=== PATIENT | female | born 1985 | race Caucasian/White ===

== ENCOUNTER → 2017-03-26 | Outpatient (CLI) | payer BC ==
[~2017-03-26] VITALS: Ht 157.5 cm; Wt 74.6 kg
[~2017-03-26] MED LIST: 00186-0372-20 IH; ALLEGRA-D 24HOU1 T24 PO; ATIVAN 0.50.5 MG/TAB PO; AZURETTE1 TAB PO; BLOOD PRESSURE MED; CALCIUM1 CAP PO; COLACE 100100 MG/CAP PO; FLEXERIL10 MG PO; FLOMAX 0.40.4 MG/CAP PO; GLUCOPHAGE; IRON325 M2 PO; IRON325 MG PO; LEVAQUIN 750MG750 M1 PO; LEVEMIR SQ; LEXAPRO 10MG10 MG PO; LEXAPRO 5MG5 MG PO; LEXAPRO20 MG PO; LORTAB 5/500 501 TAB PO; METHYLDOPA PO; MULTIPLE VITAMI1 TAB PO; NAPROSYN PO; NEXIUM 20MG20 MG PO; NO HOME MEDICATIONS; NORCO 325 MG-51 TAB PO; NOVOLOG 100U100 U/ML SQ; PERCOCET 325 MG1 TA2 PO; PERCOCET 5/321 UDTAB PO; PHENERGAN25 MG RC; PHENTERMINE15 MG; PRENATAL1 TA1 PO; PRENATAL1 TA6 PO; PRIL40 PO; RITE AID BIO2500 MCG PO; RT ADVAIR 128 DISKUS IH; SINGULAIR 110 MG/TAB PO; VENTOLIN0.09 MG IH; VITAMIN B121000 MC2 SL; VITAMIN D 50,1.25 MG PO; VITAMIN D PO; VITAMIN D1000 IU PO; VITAMIN D32000 IU PO; VITAMIND3 5000 PO; WELLBUTRIN PO; WELLBUTRIN SR100 M1 PO; ZOFRAN ODT4 MG PO; [UNRECOGNIZED DRUG - OTHER] PO; [UNRECOGNIZED DRUG - OTHER] PO
[2017-03-26 14:28] VITALS: BP 120/70; PULSE 64
== END ==
LOC: LIGHT 14:08
DX: Z98.84 Bariatric surgery status (principal); Z68.30 Body mass index [BMI] 30.0-30.9, adult; Z71.3 Dietary counseling and surveillance
CPT/HCPCS: G0463

== ENCOUNTER 2019-06-06 08:49 | Day surgery (SDC) | payer OTHER ==
[~2019-06-06] VITALS: Ht 157.5 cm; Wt 72.5 kg
[~2019-06-06 08:49] MED LIST changes: +AMBIEN 5MG TABLE5 MG PO; +BIOTIN2500 MCG PO; +DILAUDID 4MG TAB4 MG PO; +DULERA1 ARO IH; +INDERAL 20MG20 MG PO; +NASACORT OTC NS; -PRIL40 PO; +PRILOSEC 20MG20 MG PO; +REXULTI3 MG PO; -RITE AID BIO2500 MCG PO; +XYZAL5 MG PO
[2019-06-06 09:12] VITALS: BP 123/80; PULSE 71; TEMP 97.5
[2019-06-06] MEDS ORDERED: BREO ELLIPTA 21 EACH IH (09:24)
[2019-06-06] MEDS ORDERED: PRISTIQ100 MG PO (09:24)
[2019-06-06] MEDS ORDERED: ACCOLATE 220 MG/1 TA PO (09:24)
[2019-06-06] MEDS ORDERED: ASMANEX HF200 MCG/Ac IH (09:25)
[2019-06-06] MEDS ORDERED: KLONOPIN WAFER0.5 MG PO (09:25)
[2019-06-06] MEDS ORDERED: MINIPRESS2 MG PO (09:25)
[2019-06-06] MEDS ORDERED: PERCOCET 325 MG1 TA2 PO (09:26)
--- NOTE | 2019-06-06 09:30 | NUR ---
TO RM AT 0900- CALL LIGHT IN REACH WILL CALL [employer] MOTHER IN LAW FOR RIDE HOME
[2019-06-06 10:25] VITALS: BP 100/76; PULSE 56; TEMP 97.8
--- NOTE | 2019-06-06 10:25 | NUR ---
Patient brought back to [facility] [address] via cart. Ambulated to chair without difficulty. Placed on monitors, vital signs stable. Patient denies pain or nausea. Requesting soda and muffin. Report recieved from Rufino DUGGAN. Provided warm blanket and call galeas, will continue to monitor.
[2019-06-06 10:40] VITALS: BP 105/65; PULSE 54
--- NOTE | 2019-06-06 10:40 | NUR ---
Patient tolerating food and drink without any difficulty. States she is feeling well. Will continue to monitor.
[2019-06-06 10:55] VITALS: BP 107/96; PULSE 70
--- NOTE | 2019-06-06 10:55 | NUR ---
Patient states she is ready to go home. IV removed. Discharge instructions reviewed. All questions answered. Patient to get dressed at this time.
--- NOTE | 2019-06-06 11:12 | NUR ---
Patient brought down to lobby via wheel chair. Mother in law met patient at front door. Will drive her home.
== END 2019-06-06 11:12 | disposition home or self-care (01) ==
LOC: SDCO 08:49
DX: K62.1 Rectal polyp (principal); Z88.6 Allergy status to analgesic agent; Z98.84 Bariatric surgery status; M79.7 Fibromyalgia
CPT/HCPCS: J2250; J2704; J7120

== ENCOUNTER 2020-07-14 17:38 | Emergency (ER) | payer OTHER ==
[~2020-07-14] VITALS: Ht 157.5 cm; Wt 63.6 kg
[~2020-07-14 17:38] MED LIST changes: +ACCOLATE 220 MG/1 TA PO; +ASMANEX HF200 MCG/Ac IH; +BREO ELLIPTA 21 EACH IH; +KLONOPIN WAFER0.5 MG PO; +MINIPRESS2 MG PO; +PRISTIQ100 MG PO
[2020-07-14 18:21] LABS: BASO # 0.1 (0.0-0.2); BASO % 0.6 % (0.0-2.0); EOS # 0.5 (0.0-0.7); EOS % 3.7 % (0-4.0); GRAN # 6.9 (1.4-6.5); GRAN % 55.1 % (42.2-75.2); HEMATOCRIT 36.7 % (37.0-47.0); HEMOGLOBIN 11.9 g/dl (12.5-16.0); LYMPH # 4.3 (1.2-3.4); LYMPH % 34.3 % (20.0-51.0); MEAN CELL VOLUME 82 fl (80.0-100.0); MEAN CORPUSCULAR HEMOGLOBIN 27 pg (27.0-31.0); MEAN CORPUSCULAR HGB CONC 32 g/dl (33.0-37.0); MEAN PLATELET VOLUME 9.8 fl (7.4-10.4); MONO # 0.7 (0.1-0.6); MONO % 5.9 % (1.7-9.3); PLATELET COUNT 422 K/mm3 (130-400); RED BLOOD COUNT 4.47 M/mm3 (4.10-5.30); REDCELL DISTRIBUTION WIDTH-CV 14.3 % (11.5-14.5)
[2020-07-14 18:31] LABS: ALBUMIN 4.4 gm/dL (3.5-5.0); BILIRUBIN,TOTAL 0.3 mg/dL (0.0-1.0); C-REACTIVE PROTEIN 0.7 mg/dL (0.0-0.9); CALCIUM 9.5 mg/dL (8.4-10.2); CREATININE, serum 0.56 (0.52-1.25); POTASSIUM 3.4 mmol/L (3.4-5.0); TOTAL PROTEIN 7.7 gm/dL (6.4-8.2)
[2020-07-14] MEDS ORDERED: PREDNISONE20 MG PO (19:12)
[2020-07-14 20:23] VITALS: BP 138/86; PULSE 76; TEMP 98.3
== END 2020-07-14 19:43 | disposition home or self-care (01) ==
LOC: COL.ER 17:38
PROVIDERS: Nurse Practitioner Primary Care
DX: J45.901 Unspecified asthma with (acute) exacerbation (principal); J06.9 Acute upper respiratory infection, unspecified; F41.9 Anxiety disorder, unspecified; K21.9 Gastro-esophageal reflux disease without esophagitis; F17.210 Nicotine dependence, cigarettes, uncomplicated; Z20.822 Contact with and (suspected) exposure to COVID-19; Z79.51 Long term (current) use of inhaled steroids; Z79.899 Other long term (current) drug therapy
CPT/HCPCS: J7030

== ENCOUNTER 2021-10-02 08:36 | Emergency (ER) | payer MEDICAID ==
[~2021-10-02] VITALS: Ht 157.5 cm; Wt 85.5 kg
[~2021-10-02 08:36] MED LIST changes: +PREDNISONE20 MG PO
[2021-10-02 08:39] VITALS: TEMP 98.2
[2021-10-02] MEDS ORDERED: FLEXERIL 1010 MG/TAB PO (09:14)
[2021-10-02 09:34] VITALS: BP 121/93; PULSE 74
== END 2021-10-02 09:36 | disposition home or self-care (01) ==
LOC: COL.ER 08:36
DX: S46.912A Strain of unspecified muscle, fascia and tendon at shoulder and upper arm level, left arm, initial encounter (principal); S39.012A Strain of muscle, fascia and tendon of lower back, initial encounter; G89.29 Other chronic pain; Z79.891 Long term (current) use of opiate analgesic; Z28.310 Unvaccinated for COVID-19; X50.1XXA Overexertion from prolonged static or awkward postures, initial encounter; Y93.K1 Activity, walking an animal

== ENCOUNTER 2022-04-13 15:00 | Outpatient (RCR) | payer MEDICAID ==
[~2022-04-13 15:00] MED LIST changes: +FLEXERIL 1010 MG/TAB PO
== END 2022-04-18 | disposition home or self-care (01) ==
LOC: WSPT
DX: M54.50 Low back pain, unspecified (principal); G89.29 Other chronic pain